=== PATIENT | male | born 1985 | race Caucasian/White ===

== ENCOUNTER 2020-03-05 15:23 | Emergency (ER) | payer BC ==
[~2020-03-05] VITALS: Ht 177.8 cm; Wt 72.6 kg
== END 2020-03-05 19:07 | disposition home or self-care (01) ==
LOC: ER 15:23
DX: S01.122A Laceration with foreign body of left eyelid and periocular area, initial encounter (principal); S01.82XA Laceration with foreign body of other part of head, initial encounter; V19.88XA Pedal cyclist (driver) (passenger) injured in other specified transport accidents, initial encounter; Y93.89 Activity, other specified; Y92.89 Other specified places as the place of occurrence of the external cause; Y99.8 Other external cause status